=== PATIENT | female | born 1995 | race Caucasian/White ===

== ENCOUNTER 2020-11-05 10:31 | Emergency (ER) | payer OTHER ==
[~2020-11-05 10:31] MED LIST: COLACE 100MG C100 MG PO; FLAGYL500 MG PO; IBUPROFEN600 MG PO; NORCO 10-325 T1 EACH PO
== END 2020-11-05 12:32 | disposition home or self-care (01) ==
LOC: ER1 10:31
DX: G62.9 Polyneuropathy, unspecified (principal); F17.200 Nicotine dependence, unspecified, uncomplicated
CPT/HCPCS: 99283

== ENCOUNTER 2021-05-02 22:30 | Emergency (ER) | payer OTHER ==
[2021-05-02 23:22] LABS: HEMOGLOBIN 16.5 gm/dl (12.3-15.3); RED BLOOD COUNT 5.45 M/UL (4.00-5.10); WHITE BLOOD COUNT 7.5 K/UL (4.5-11.0)
[2021-05-03 00:17] LABS: BUN/CREATININE RATIO 18 (0-10)
[2021-05-03] MEDS ORDERED: MACROBID 100 M100 MG PO (04:12)
[2021-05-03] MEDS ORDERED: ZOFRAN ODT 4 MG4 MG SL (04:12)
== END 2021-05-03 04:31 | disposition home or self-care (01) ==
LOC: ER1 22:30
PROVIDERS: Family Medicine
DX: N39.0 Urinary tract infection, site not specified (principal); R19.7 Diarrhea, unspecified; Z88.1 Allergy status to other antibiotic agents
CPT/HCPCS: 80053; 81001; 83690; 84703; 85025; 96374; 96375; 99284; J2270; J2405; J2550; Q9967

== ENCOUNTER → 2021-05-12 | Outpatient (CLI) | payer OTHER ==
[~2021-05-12] MED LIST changes: +MACROBID 100 M100 MG PO; +ZOFRAN ODT 4 MG4 MG SL
== END ==
LOC: EXRD 10:30
DX: R10.11 Right upper quadrant pain (principal); K76.0 Fatty (change of) liver, not elsewhere classified
CPT/HCPCS: 76705

== ENCOUNTER → 2021-06-02 | Outpatient (CLI) | payer OTHER | LOC: NM 13:00 | DX: R10.9 Unspecified abdominal pain (principal) | CPT/HCPCS: 78226; A9537 ==

== ENCOUNTER → 2021-09-24 | Outpatient (CLI) | payer OTHER | LOC: NM 12:47 | DX: R11.0 Nausea (principal) | CPT/HCPCS: 78264; A9541 ==

== ENCOUNTER 2022-02-03 18:46 | Emergency (ER) | payer OTHER ==
[2022-02-03 19:39] LABS: HEMOGLOBIN 16.8 gm/dl (12.3-15.3); RED BLOOD COUNT 5.64 M/UL (4.00-5.10); WHITE BLOOD COUNT 11.4 K/UL (4.5-11.0)
[2022-02-03 20:00] LABS: BUN/CREATININE RATIO 13 (0-10)
[2022-02-03] MEDS ORDERED: ZOFRAN ODT 4 MG4 MG SL (20:45)
[2022-02-03] MEDS ORDERED: PHENERGAN 25 MG25 M1 PO (20:45)
== END 2022-02-03 20:57 | disposition home or self-care (01) ==
LOC: ER1 18:46
PROVIDERS: Emergency Medicine
DX: R73.9 Hyperglycemia, unspecified (principal); K31.84 Gastroparesis; Z90.49 Acquired absence of other specified parts of digestive tract; Z90.89 Acquired absence of other organs; Z87.891 Personal history of nicotine dependence
CPT/HCPCS: 80053; 81001; 83690; 84703; 85025; 87086; 96374; 99284; J2405

== ENCOUNTER 2022-02-05 02:19 | Inpatient (IN) | payer OTHER ==
[~2022-02-05] VITALS: Ht 160 cm; Wt 63.5 kg
[~2022-02-05 02:19] MED LIST changes: +PHENERGAN 25 MG25 M1 PO
[2022-02-05 03:50] LABS: HEMOGLOBIN 16.9 gm/dl (12.3-15.3); RED BLOOD COUNT 5.75 M/UL (4.00-5.10); WHITE BLOOD COUNT 14.2 K/UL (4.5-11.0)
[2022-02-05 04:11] LABS: BUN/CREATININE RATIO 15 (0-10)
[2022-02-05] MEDS ORDERED: PROZAC20 MG PO (11:47)
[2022-02-05] MEDS ORDERED: PROMETHAZINE HC25 M1 PO (11:47)
[2022-02-05] MEDS ORDERED: ZOFRAN ODT 4 MG4 MG PO (11:48)
[2022-02-05 16:57] LABS: ADENOVIRUS F 40/41 Not Detected (Negative); ASTROVIRUS Not Detected (Negative); CAMPYLOBACTER Not Detected (Negative); CRYPTOSPORIDIUM Not Detected (Negative); E.COLI 0157 Not Detected (Negative); ENTAMOEBA HISTOLYTICA Not Detected (Negative); ENTEROAGGREGATIVE E.COLI (EAEC Not Detected (Negative); ENTEROPATHOGENIC E.COLI (EPEC) Not Detected (Negative); ENTEROTOXIGENIC E.COLI (ETEC) Not Detected (Negative); GIARDIA LAMBLIA Not Detected (Negative); NOROVIRUS GI/GII Not Detected (Negative); PLESIOMONAS SHIGELLOIDES Not Detected (Negative); ROTOVIRUS A Not Detected (Negative); SALMONELLA Not Detected (Negative); SAPOVIRUS Not Detected (Negative); SHIG/ENTEROINVAS.ECOLI (EIEC) Not Detected (Negative); SHIGA-LIK TOX.PRO.E.COLI (STEC Not Detected (Negative); VIBRIO Not Detected (Negative); VIBRIO CHOLERAE Not Detected (Negative); YERSINIA ENTEROCOLITICA Not Detected (Negative)
[2022-02-06 03:26] LABS: HEMOGLOBIN 13.8 gm/dl (12.3-15.3); RED BLOOD COUNT 4.69 M/UL (4.00-5.10); WHITE BLOOD COUNT 7.4 K/UL (4.5-11.0)
[2022-02-06 03:35] LABS: BUN/CREATININE RATIO 15 (0-10)
[2022-02-06 08:28] LABS: CLOSTRIDIUM DIFFICILE TOX A/B Not Detected (Negative)
== END 2022-02-06 10:33 | disposition home or self-care (01) | DRG 392 ==
LOC: ER1 02:19 → M/S 09:04 → CDU 09:04 → M/S 12:00
PROVIDERS: Emergency Medicine; Physician Assistant Medical; ADMIT Internal Medicine
DX: K31.84 Gastroparesis (principal); E87.6 Hypokalemia; D72.829 Elevated white blood cell count, unspecified; K52.9 Noninfective gastroenteritis and colitis, unspecified; Z90.49 Acquired absence of other specified parts of digestive tract; Z98.890 Other specified postprocedural states; Z90.89 Acquired absence of other organs; Z88.2 Allergy status to sulfonamides
CPT/HCPCS: 76705; 80053; 81001; 83690; 83735; 85025; 85027; 87449; 87507; 96361; 96374; 96375; 96376; 99285; J1335; J2405; J2550; Q9967